=== PATIENT | female | born 2000 | race Two or more races ===

== ENCOUNTER 2021-08-01 04:00 | Emergency (ER) | payer OTHER ==
[~2021-08-01] VITALS: Ht 167.6 cm; Wt 57.2 kg
--- NOTE | 2021-08-01 04:43 | NUR ---
BIB AND [facility] TO ER BED 7. AAOX2. NOT IN RESP DISTRESS. BORUGHT IN FOR AGITATION AND DELUSION. PT WAS REPORTED BY THE FATHER BEING DELUSIONAL THINKING THAT SOME IS TO HARM HER FAMILY. PT WAS RELEASED FROM A REHAB YESTERDAY. PT WAS ALSO REPORTED TO BE 12 WEEKS AND HAD AN ULTRASOUND ON MONDAY CONFIRMING PER FATHER. PT'S FATHER WAS REMAINED IN AT BEDSIDE D/T PT GET AGITATED WHEN FATHER LEAVES AT BEDSIDE. PT DENIED ANY THOUGHTS OF HARMING HERSELF NOR OTHER. WAS AT THE BEDSIDE FOR EVAL. ORDERS RECEIVED, NOTED AND CARRIED OUT
--- NOTE | 2021-08-01 04:56 | NUR ---
BLOOD WORK SENT TO LAB
[2021-08-01] MEDS ORDERED: IV NS 0.9% 1,000 ML BAG IV ONE (05:00)
--- NOTE | 2021-08-01 05:00 | NUR ---
LAC #20G S/L ; PATENT AND INTACT.
[2021-08-01 05:02] LABS: BASOPHILS % (AUTO) 0.3 % (0.0-2.0); EOSINOPHILS % (AUTO) 0.3 % (0.0-6.0); HEMATOCRIT 37 % (33-45); HEMOGLOBIN 13.1 g/dL (11.5-14.8); LYMPHOCYTES # (AUTO) 1.8 K/uL (0.8-4.8); LYMPHOCYTES % (AUTO) 18.2 % (20.0-44.0); MEAN CORPUSCULAR HGB CONC 35 g/dl (31.0-36.0); MEAN CORPUSCULAR VOLUME 93 fL (82-100); MONOCYTES # (AUTO) 0.7 K/uL (0.1-1.30); MONOCYTES % (AUTO) 6.5 % (2.0-12.0); NEUTROPHILS # (AUTO) 7.5 K/uL (1.8-8.9); NEUTROPHILS % (AUTO) 74.7 % (43.0-81.0); PLATELET COUNT (AUTO) 262 K/uL (150-450)
[2021-08-01] MEDS ORDERED: diphenhydrAMINE HCL 50 MG/ML VIAL ONE (05:07)
[2021-08-01] MEDS ORDERED: HALOPERIDOL LACTATE INJ 5 MG/ML VIAL ONE (05:07)
[2021-08-01] MEDS ORDERED: LORAZEPAM INJ 2 MG/ML VIAL ONE (05:08)
[2021-08-01 05:12] LABS: CALCIUM, SERUM 8.4 mg/dL (8.5-10.1); CARBON DIOXIDE 25 mmol/L (21-32); CHLORIDE 101 mmol/L (98-107); CREATININE 0.7 mg/dL (0.6-1.3); GLUCOSE 117 mg/dL (74-106); POTASSIUM 3.4 mmol/L (3.5-5.1); SODIUM SERUM 136 mmol/L (136-145); UREA NITROGEN, BLOOD 12 mg/dL (7-18)
[2021-08-01 05:17] LABS: CREATINE KINASE, TOTAL 127 U/L (26-192)
--- NOTE | 2021-08-01 05:21 | NUR ---
PT NOT ABLE TO GIVE URINE SAMPLE; WILL F/U
[2021-08-01 05:28] LABS: ALANINE AMINOTRANSFERASE 24 U/L (12-78); ALBUMIN 3.5 g/dL (3.4-5.0); ALCOHOL, BLOOD < 3 mg/dL (0-0); ALKALINE PHOSPHATASE 43 U/L (46-116); ASPARTATE AMINOTRANSFERASE 15 U/L (15-37); BILIRUBIN,DIRECT 0.2 mg/dL (0.0-0.2); BILIRUBIN,TOTAL 0.4 mg/dL (0.2-1.0); TOTAL PROTEIN, SERUM 6.9 g/dL (6.4-8.2)
[2021-08-01] MEDS ORDERED: HALOPERIDOL LACTATE INJ 5 MG/ML VIAL IVP ONE (05:30)
[2021-08-01] MEDS ORDERED: LORAZEPAM INJ 2 MG/ML VIAL IVP ONE (05:30)
[2021-08-01] MEDS ORDERED: diphenhydrAMINE HCL 50 MG/ML VIAL IV ONE (05:30)
[2021-08-01 05:34] LABS: ACETAMINOPHEN 0 ug/ml (10-30)
--- NOTE | 2021-08-01 06:04 | NUR ---
US TECH AT PT'S BEDSIDE
[2021-08-01] MEDS ORDERED: POTASSIUM CL. PREMIX PERIPHER. 100 ML ONE (06:17)
[2021-08-01] MEDS: POTASSIUM CL. PREMIX PERIPHER. 50 ML IV SCH ×2 (06:28→07:27)
--- NOTE | 2021-08-01 07:43 | NUR ---
PATIENT ASLEEP, EASILY AROUSABLE, STILL UNABLE TO PROVID URINE SAMPLE
--- NOTE | 2021-08-01 12:01 | NUR ---
CALLED [facility] [phone] LEFT VM
--- NOTE | 2021-08-01 14:35 | NUR ---
Patient discharged to home in stable condition. Written and verbal after care instructions given. Patient verbalizes understanding of instruction.IV removed. Catheter intact and site benign. Pressure and 4x4 applied to site. No bleeding noted.
[2021-08-01 15:05] VITALS: BP 101/68
== END 2021-08-01 15:06 | disposition home or self-care (01) ==
LOC: ER 04:06
DX: O99.341 Other mental disorders complicating pregnancy, first trimester (principal); F23 Brief psychotic disorder; R45.1 Restlessness and agitation; R94.31 Abnormal electrocardiogram [ECG] [EKG]; Z3A.10 10 weeks gestation of pregnancy
CPT/HCPCS: 36415; 76805; 80048; 80076; 80143; 80320; 82550; 84702; 85025; 93005; 96361; 96365; 96366; 96375; 99291; J1200; J1630; J2060; J3480; J7030; G0480